=== PATIENT | female | born 1980 | race Hispanic/Latino ===

== ENCOUNTER 2024-08-23 09:16 | Emergency (ER) | payer OTHER ==
[~2024-08-23] VITALS: Ht 167.6 cm; Wt 81.6 kg
[2024-08-23 09:20] VITALS: PULSE 82; RESP 16; TEMP 98.3; O2SAT 99
[2024-08-23] MEDS: ASPIRIN 325 MG TAB PO ONE (10:27)
== END 2024-08-23 13:06 | disposition home or self-care (01) ==
LOC: FSED 09:59
DX: M25.512 Pain in left shoulder (principal); X50.1XXA Overexertion from prolonged static or awkward postures, initial encounter; Y92.89 Other specified places as the place of occurrence of the external cause; R94.31 Abnormal electrocardiogram [ECG] [EKG]
CPT/HCPCS: 71046; 80053; 81003; 81025; 82553; 84484; 85025; 85379; 93005; 99284